=== PATIENT | male | born 1970 | race Caucasian/White ===

== ENCOUNTER 2020-10-02 10:16 | Outpatient (CLI) | payer BC | END 2020-10-02 10:17 | disposition home or self-care (01) | LOC: CSHMRI 10:16 | PROVIDERS: ATTEND Internal Medicine | DX: M54.5 Low back pain (principal); M47.816 Spondylosis without myelopathy or radiculopathy, lumbar region; M47.817 Spondylosis without myelopathy or radiculopathy, lumbosacral region; N28.9 Disorder of kidney and ureter, unspecified | CPT/HCPCS: 72148 ==